=== PATIENT | female | born 1990 | race Hispanic/Latino ===

== ENCOUNTER 2022-08-15 05:19 | Inpatient (IN) | payer MEDICAID, OTHER, SELFPAY ==
[2022-08-14 11:08] LABS: #Eosinphils 0.1 10x3/uL (0.0-0.5); #Monocytes 0.7 10x3/uL (0.0-1.1); %Basophils 0.5 % (0.0-2.0); %Eosinophils 1.2 % (0.0-6.0); %Lymphocytes 19.8 % (18.0-47.0); %Neutrophils 69.3 % (40.0-75.0); Mean Corpuscular HGB CONC 35.1 g/dL (32.0-36.0); Mean Corpuscular Volume 82.6 fl (81.6-98.3); Platelet Count 224 10x3/uL (150-450); RBC Distribution Width 13.6 % (11.5-14.5); Red Blood Cell (RBC) Count 4.48 10x6/uL (3.90-5.03); White Blood Cell (WBC) Count 8.7 10x3/uL (3.5-10.5)
[2022-08-14 11:21] LABS: SARS-CoV-2 NAA Rapid Test Not Detected (NotDetected)
[2022-08-14 11:22] LABS: Syphilis Antibody Nonreactive (Nonreactive); Syphilis Antibody Index 0.03 S/CO (<1.00 Non-Reactive)
[2022-08-14 11:24] LABS: HBSAg Index 0.17 S/CO (0-0.99); Hep B Surf Ag Non-Reactive S/CO (NonReactive)
[2022-08-15] MEDS ORDERED: Bicitra 30 ML UDCUP PO PRN (09:22)
[2022-08-15] MEDS ORDERED: hydrALAZINE 20 MG/ML VIAL SLOW IVP PRN ×2 (09:22→17:13)
[2022-08-15] MEDS ORDERED: Ondansetron PF 4 MG/2 ML Vial IVP PRN ×3 (09:22→17:13)
[2022-08-15] MEDS ORDERED: Famotidine/PF 20 mg/2ml Vial SLOW IVP PRN (09:22)
[2022-08-15] MEDS ORDERED: Promethazine HCl 25 MG/ML VIAL IM PRN ×3 (09:22→17:13)
[2022-08-15] MEDS ORDERED: CEFAZOLIN 2 GM in Sodium Chloride 0.9% 100 ML IVPB SCH (09:30)
[2022-08-15] MEDS ORDERED: Lactated Ringer's 1,000 ML IV SCH (09:30)
[2022-08-15] MEDS ORDERED: Morphine PF 10 MG/10 ML VIAL ONE (10:59)
[2022-08-15] MEDS ORDERED: ePHEDrine Sulfate 50 MG/10 ML VIAL ONE (10:59)
[2022-08-15] MEDS ORDERED: PHENYLEPHRINE-NS 100 MCG/ML 10 ML SYRINGE ONE (10:59)
[2022-08-15] MEDS ORDERED: Phenylephrine 40 MG/NS 250 ML 250 ML ONE (10:59)
[2022-08-15] MEDS ORDERED: Oxytocin 10 UNITS/ML VIAL ONE ×2 (10:59→14:09)
[2022-08-15] MEDS ORDERED: Ondansetron PF 4 MG/2 ML Vial ONE (10:59)
[2022-08-15] MEDS ORDERED: Ketorolac Tromethamine 30 MG/ML VIAL ONE (10:59)
[2022-08-15] MEDS ORDERED: Ondansetron HCl/PF 4 MG/2 ML Vial IVP PRN (11:08)
[2022-08-15] MEDS ORDERED: Moisturizing Cream (Eucerin) 113 GM JAR TOP PRN (11:08)
[2022-08-15] MEDS ORDERED: Meperidine HCl/PF 25 MG/ML VIAL SLOW IVP PRN (11:08)
[2022-08-15] MEDS ORDERED: Promethazine HCl 25 MG SUPP PR PRN (11:08)
[2022-08-15] MEDS ORDERED: Naloxone HCl 0.4 mg/ml Vial IV PRN (11:08)
[2022-08-15] MEDS ORDERED: Fentanyl 100 MCG/2 ML VIAL SLOW IVP PRN (11:08)
[2022-08-15] MEDS ORDERED: Naloxone HCl 0.4 mg/ml Vial IVP PRN ×2 (11:08)
[2022-08-15] MEDS ORDERED: diphenhydrAMINE 50 MG/ML VIAL IVP PRN (11:08)
[2022-08-15] MEDS ORDERED: Communication Order-Pharmacy FS SCH (11:15)
[2022-08-15 12:49] VITALS: BMI 26.6
[2022-08-15] MEDS ORDERED: CEFAZOLIN 2 GM VIAL ONE (12:59)
[2022-08-15] MEDS ORDERED: Famotidine/PF 20 mg/2ml Vial ONE (12:59)
[2022-08-15] MEDS ORDERED: Boostrix 0.5 ML (Tdap) VIAL (>/=7 yrs of age) IM ONE (17:13)
[2022-08-15] MEDS ORDERED: Simethicone Chewable 80 MG TAB PO PRN (17:13)
[2022-08-15] MEDS ORDERED: Bisacodyl 10 MG SUPP PR PRN (17:13)
[2022-08-15] MEDS ORDERED: Lanolin Ointment 7 GM TUBE TOP PRN (17:13)
[2022-08-15] MEDS ORDERED: Meperidine HCl/PF 25 MG/ML VIAL IM PRN (17:13)
[2022-08-15] MEDS ORDERED: Ketorolac Tromethamine 30 MG/ML VIAL IVP PRN (18:55)
[2022-08-15] MEDS ORDERED: Ketorolac Tromethamine 30 MG/ML VIAL IVP SCH (18:55)
[2022-08-15] MEDS ORDERED: Fleet Enema 133 ML BOT ONE (21:39)
[2022-08-15] MEDS: diphenhydrAMINE 25 MG CAP PO PRN (21:42)
[2022-08-15] MEDS ORDERED: Sodium Chloride 0.65% Nasal 44 ML BOT EA NARE PRN (21:43)
[2022-08-15] MEDS: Ketorolac Tromethamine 30 MG/ML VIAL IVP SCH (21:46)
[2022-08-16 03:50] LABS: Hemoglobin 11.6 g/dL (12.0-15.5); Mean Corpuscular HGB CONC 35.4 g/dL (32.0-36.0); Mean Corpuscular Hemoglobin 29.1 pg (27.0-33.0); Mean Corpuscular Volume 82.2 fl (81.6-98.3); Mean Platelet Volume 11.6 fl (7.4-10.4); Platelet Count 173 10x3/uL (150-450); RBC Distribution Width 13.4 % (11.5-14.5); Red Blood Cell (RBC) Count 3.99 10x6/uL (3.90-5.03); White Blood Cell (WBC) Count 9.5 10x3/uL (3.5-10.5)
[2022-08-16] MEDS: Ferrous Sulfate 325 MG TAB PO SCH ×2 (05:26→09:46)
[2022-08-16] MEDS: Docusate 100 MG CAP PO SCH ×3 (05:27→21:44)
[2022-08-16] MEDS: Ketorolac Tromethamine 30 MG/ML VIAL IVP SCH (05:29)
[2022-08-16] MEDS: Prenatal Vitamin 1 TAB PO SCH (08:34)
[2022-08-16] MEDS: HYDROcodone/Acetaminophen 5/325 mg Tablet PO PRN ×3 (08:34→19:07)
[2022-08-16] MEDS ORDERED: Ketorolac Tromethamine 30 MG/ML VIAL IVP SCH (12:00)
[2022-08-16] MEDS: diphenhydrAMINE 25 MG CAP PO PRN (19:10)
[2022-08-16] MEDS: Ibuprofen 800 MG TAB PO SCH (21:44)
[2022-08-17] MEDS: Ibuprofen 800 MG TAB PO SCH ×3 (05:35→21:40)
[2022-08-17] MEDS: Ketorolac Tromethamine 30 MG/ML VIAL IVP SCH (07:30)
[2022-08-17] MEDS: Ferrous Sulfate 325 MG TAB PO SCH ×3 (07:30→21:40)
[2022-08-17] MEDS: Prenatal Vitamin 1 TAB PO SCH (07:40)
[2022-08-17] MEDS: Docusate 100 MG CAP PO SCH ×2 (07:40→21:40)
[2022-08-17] MEDS: HYDROcodone/Acetaminophen 5/325 mg Tablet PO PRN ×2 (07:40→17:29)
[2022-08-18] MEDS: HYDROcodone/Acetaminophen 5/325 mg Tablet PO PRN ×3 (03:08→12:14)
[2022-08-18] MEDS: Ibuprofen 800 MG TAB PO SCH (05:07)
[2022-08-18 07:54] VITALS: BP 101/65; TEMP 98.3
[2022-08-18] MEDS: Docusate 100 MG CAP PO SCH (08:13)
[2022-08-18] MEDS: Prenatal Vitamin 1 TAB PO SCH (08:13)
[2022-08-18] MEDS: Ferrous Sulfate 325 MG TAB PO SCH (09:00)
== END 2022-08-18 12:20 | disposition home or self-care (01) | DRG 788 ==
LOC: CSHLD 10:12 → CSHPP 16:40
PROVIDERS: ADMIT Family Medicine; ATTEND Family Medicine
PROC: 10D00Z1 Extraction of Products of Conception, Low, Open Approach (ICD-10-PCS; principal; 2022-08-15)
DX: O34.211 Maternal care for low transverse scar from previous cesarean delivery (principal); Z20.822 Contact with and (suspected) exposure to COVID-19; Z3A.39 39 weeks gestation of pregnancy; Z37.0 Single live birth
CPT/HCPCS: 36415; 51702; 85025; 85027; 86780; 86850; 86900; 86901; 87340; J1885; J2274; J2405; J2590; J3490; S0028; U0002